=== PATIENT | female | born 2005 | race Caucasian/White ===

== ENCOUNTER 2024-06-01 22:31 | Emergency (ER) | payer SELFPAY ==
[2024-06-01] MEDS ORDERED: HYDROcodone/Acetaminophen 5/325 mg Tablet ONE (22:57)
[2024-06-01] MEDS ORDERED: Ibuprofen 200 MG TAB ONE (22:57)
== END 2024-06-01 23:59 | disposition home or self-care (01) ==
LOC: ERS 22:31
DX: S80.812A Abrasion, left lower leg, initial encounter (principal); S80.811A Abrasion, right lower leg, initial encounter; S30.810A Abrasion of lower back and pelvis, initial encounter; R51.9 Headache, unspecified; V89.2XXA Person injured in unspecified motor-vehicle accident, traffic, initial encounter; W22.11XA Striking against or struck by driver side automobile airbag, initial encounter
CPT/HCPCS: 70450; 72125; 72170